=== PATIENT | male | born 1930 | race Caucasian/White ===

== ENCOUNTER → 2016-12-19 | Outpatient (CLI) | payer OTHER ==
[~2016-12-19] MED LIST: ASPIR 8181 MG PO; CELEBREX 200 M200 M1 PO; CENTRUM SILVER1 EAC4 PO; DIPHENHYDRAMINE25 M3 PO; FEVERALL650 MG RECTAL; FLOMAX0.4 MG PO; HYDROCODONE-AP1 EAC6 PO; HYDROXYZINE HCL25 M1 PO; LEVOTHYROXINE0.05 MG PO; LEXAPRO 10 MG T10 M1 PO; LIORESAL 10 MG10 MG PO; PROSTAT LIQUID PO; RANITIDINE 150150 MG PO; REFRESH CLASSI1 EACH; SENNA PLUS TAB1 EACH PO; SILVADENE20 GM; TYLENOL325 MG PO; VITAMIN C500 M1 PO; ZINC SULFATE 2220 M1 PO
[2016-12-19 11:53] LABS: CREATININE 1.3 mg/dL (0.7-1.3)
== END ==
LOC: RAD 10:05
PROVIDERS: Urology
DX: C61 Malignant neoplasm of prostate (principal); J98.11 Atelectasis; N28.1 Cyst of kidney, acquired